=== PATIENT | female | born 1930 | race African-American/Black ===

== ENCOUNTER → 2016-11-12 | Outpatient (CLI) | payer MEDICARE, BC | END | disposition home or self-care (01) | LOC: CARD 09:11 | PROVIDERS: ATTEND Psychiatry & Neurology Neurology | DX: I63.8 Other cerebral infarction (principal) ==

== ENCOUNTER → 2016-11-23 | Outpatient (CLI) | payer MEDICARE, BC | END | disposition home or self-care (01) | LOC: PVL 11:55 | PROVIDERS: ATTEND Psychiatry & Neurology Neurology | DX: I69.30 Unspecified sequelae of cerebral infarction (principal) | CPT/HCPCS: 93880 ==